=== PATIENT | male | born 1945 | race Caucasian/White ===

== ENCOUNTER → 2017-10-18 | Outpatient (CLI) | payer OTHER, MEDICARE ==
[~2017-10-18] VITALS: Ht 172.7 cm; Wt 83.9 kg
[~2017-10-18] MED LIST: ACETAMINOPHEN325 M1 PO; ALEVE220 MG PO; ASPIR 8181 M1 PO; ASPIR 8181 MG PO; ASPIRIN EC81 M1 PO; BP MED; CATAPRES-TTS 10.1 M1 TD; FISH OIL 1,0001 EAC5 PO; FLOMAX0.4 MG PO; HYDROCODONE-AP1 EAC6 PO; KEFLEX500 MG PO; LIPITOR; LOPRESSOR 50 MG50 M1 PO; MELATONIN3 MG PO; METOPROLOL 50 M50 M1 PO; MIRAPEX0.125 MG PO; NORCO 5-325 TA1 EACH PO; PLAVIX 75 MG TA75 MG PO; SIMVASTATIN; TAMSULOSIN HCL0.4 M1 PO; TOPROL XL50 MG PO; TPN; TRAMADOL 50 MG50 MG PO; VITAMIN D-32000 UNIT PO; XARELTO10 M1 PO; ZOCOR 20 MG TAB20 M1 PO
--- NOTE | ~2017-10-18 | P ---
[facility] [place] [address] PROCEDURE REPORT Name: [facility] [facility] Room #: REG [facility]#: [id number] Admission: 10/18/17 Attend Phys: Joaquim Alamo MD Discharge: Date of : 49 Report #: [id number] THIS REPORT FOR: //name// CC: DEVYN Alamo BRIEF HISTORY: The patient is a 73-year-old male with a history of colon adenomas with last colon exam 5 years ago. He presents for high risk screening colonoscopy due to his history of colon adenomas. PREOPERATIVE DIAGNOSIS: High risk screening colonoscopy. POSTOPERATIVE DIAGNOSES: 1. Small internal hemorrhoids. 2. Normal high risk screening colonoscopy. MEDICATIONS: Deep sedation with propofol per anesthesia. SPECIMEN: None. ESTIMATED BLOOD LOSS: None. PROCEDURE: Colonoscopy to cecum and terminal ileum. FINDINGS: Prior to propofol sedation, procedure of colonoscopy discussed with the patient as well as potential risks and its complications. He indicates he understands and desires to proceed. DESCRIPTION OF PROCEDURE: With the patient in left lateral decubitus position, digital examination was completed which revealed no abnormalities. Subsequently, the [employer] video colonoscope was introduced in the rectum and advanced under direct vision to the cecum. Done with minimal difficulty. The cecum was identified by the ileocecal valve and appendiceal orifice. I was able to advance the tip of the scope to the mouth of the ileocecal valve, but was unable to cross the ileocecal valve. At that point, the scope was slowly withdrawn and careful circumferential views obtained including retroflexing the scope in the ascending colon. As we withdrew the scope, the prep was excellent. The mucosa was within normal limits, normal vascular pattern, normal light reflex. No mucosal inflammatory changes were seen. He had normal colonic mucosa throughout. The scope was withdrawn in the rectum, no abnormalities were seen. However, upon retroflexion, small hemorrhoids were seen. Scope was withdrawn. The patient tolerated the procedure well. CONDITION OF THE PATIENT UPON DISCHARGE: Following procedure, the patient drowsy, aroused and conversant, but is discharged home when fully ambulatory. [facility] [address] [place] [address] PROCEDURE REPORT Name: [place]ON [place] Room #: REG [facility]#: [id number] Admission: 10/18/17 Attend Phys: Joaquim Alamo MD Discharge: Date of : 49 Report #: [id number] INSTRUCTIONS TO THE PATIENT AND FAMILY AT THE TIME OF DISCHARGE: No neoplastic lesions were seen. I suggest he return for colonoscopy in 10 years. Suggest high fiber diet as well. Last colonoscopy was 5 years ago. Withdrawal time from the cecum was 12 minutes 50 seconds. <ELECTRONICALLY SIGNED> By: Joaquim Alamo MD 10/20/17 1408 [id number] 19 Joaquim Alamo MD /nt
== END | disposition home or self-care (01) ==
LOC: GI 08:55
DX: Z09 Encounter for follow-up examination after completed treatment for conditions other than malignant neoplasm (principal); Z86.010 Personal history of colon polyps; K64.8 Other hemorrhoids; I10 Essential (primary) hypertension; I73.89 Other specified peripheral vascular diseases; E78.00 Pure hypercholesterolemia, unspecified; Z87.891 Personal history of nicotine dependence; Z95.1 Presence of aortocoronary bypass graft; Z98.890 Other specified postprocedural states; Z79.899 Other long term (current) drug therapy; Z79.82 Long term (current) use of aspirin
CPT/HCPCS: 62110; 62900

== ENCOUNTER → 2019-11-10 | Outpatient (CLI) | payer OTHER, MEDICARE | LOC: SJCVCIMAG 10:28 | DX: R94.31 Abnormal electrocardiogram [ECG] [EKG] (principal); I08.1 Rheumatic disorders of both mitral and tricuspid valves; I44.0 Atrioventricular block, first degree; R00.1 Bradycardia, unspecified; I25.10 Atherosclerotic heart disease of native coronary artery without angina pectoris; I65.23 Occlusion and stenosis of bilateral carotid arteries; I25.5 Ischemic cardiomyopathy; I73.9 Peripheral vascular disease, unspecified; E78.5 Hyperlipidemia, unspecified; Z95.2 Presence of prosthetic heart valve ==

== ENCOUNTER → 2021-02-08 | Outpatient (CLI) | payer OTHER, MEDICARE | LOC: SJCVC 13:06 | PROVIDERS: ATTEND Internal Medicine | DX: R94.31 Abnormal electrocardiogram [ECG] [EKG] (principal); R00.1 Bradycardia, unspecified; I25.10 Atherosclerotic heart disease of native coronary artery without angina pectoris; I25.5 Ischemic cardiomyopathy; I65.23 Occlusion and stenosis of bilateral carotid arteries; I73.9 Peripheral vascular disease, unspecified; E78.5 Hyperlipidemia, unspecified; Z95.2 Presence of prosthetic heart valve; Z95.1 Presence of aortocoronary bypass graft; Z79.82 Long term (current) use of aspirin; Z79.899 Other long term (current) drug therapy; Z87.891 Personal history of nicotine dependence ==

== ENCOUNTER → 2021-02-21 | Outpatient (CLI) | payer OTHER, MEDICARE | LOC: SJCVCIMAG 07:24 | PROVIDERS: ATTEND Internal Medicine | DX: I08.1 Rheumatic disorders of both mitral and tricuspid valves (principal); I25.5 Ischemic cardiomyopathy; Z79.82 Long term (current) use of aspirin; Z79.899 Other long term (current) drug therapy; Z87.891 Personal history of nicotine dependence ==

== ENCOUNTER → 2021-02-27 | Outpatient (CLI) | payer OTHER, MEDICARE ==
[2021-02-27 15:43] LABS: ABSOLUTE NEUTROPHILS 3.9 thou/uL (1.4-8.2); BASOPHILS 0.4 % (0.0-2.0); EOSINOPHILS 0.9 % (0.0-3.0); HEMATOCRIT 38.2 % (42.0-52.0); HEMOGLOBIN 13.3 gm/dL (14.0-18.0); LYMPHOCYTES 34.6 % (24.0-44.0); MCH 33.6 pg (26.0-34.0); MCHC 34.8 g/dL (28.0-37.0); MCV 96.7 fL (80.0-100.0); MONOCYTES 9.1 % (1.0-8.0); PLATELET COUNT 156 thou/uL (150-400); RBC 3.95 mil/uL (4.50-6.00); RDW 14.1 % (10.5-14.5); WBC 7.1 thou/uL (4.0-11.0)
[2021-02-27 16:06] LABS: ALBUMIN 3.7 g/dL (3.4-5.0); CALCIUM 8.7 mg/dL (8.5-10.1); CREATININE 1.2 mg/dL (0.7-1.3); POTASSIUM 4.3 mmol/L (3.5-5.1); TOTAL BILIRUBIN 0.6 mg/dL (0.2-1.0); TOTAL PROTEIN 6.7 g/dL (6.4-8.2)
== END ==
LOC: CAT 14:42
PROVIDERS: ATTEND Internal Medicine
DX: I25.10 Atherosclerotic heart disease of native coronary artery without angina pectoris (principal); J84.10 Pulmonary fibrosis, unspecified; I70.1 Atherosclerosis of renal artery; M47.814 Spondylosis without myelopathy or radiculopathy, thoracic region; R53.83 Other fatigue